=== PATIENT | female | born 1955 | race Caucasian/White ===

== ENCOUNTER 2017-03-31 12:17 | Emergency (ER) | payer BC, OTHER ==
[2017-03-31 13:46] LABS: BASO % 0.7 % (0.0-1.0); EOS # 0.3 10^3/uL (0.0-0.50); EOS % 5.6 % (0.0-3.0); HEMATOCRIT 44.4 % (36.0-47.0); HEMOGLOBIN 15.2 g/dl (12.0-16.0); IMMATURE GRANULOCYTE % 0.3 % (0-0); LYMPH # 1.8 10^3/uL (1.5-4.5); LYMPH % 29.1 % (24.0-44.0); MEAN CORPUSCULAR HEMOGLOBIN 29.4 pg (27.0-33.0); MEAN CORPUSCULAR HGB CONC 34.2 g/dl (32.0-36.5); MEAN CORPUSCULAR VOLUME 85.9 fl (80.0-96.0); MONO # 0.6 10^3/uL (0.0-0.8); NEUTROPHILS # 3.3 10^3/uL (1.8-7.7); NEUTROPHILS % 54.3 % (36.0-66.0); PLATELET COUNT, AUTOMATED 274 10^3/uL (150-450); RED BLOOD COUNT 5.17 10^6/uL (4.00-5.40); RED CELL DISTRIBUTION WIDTH 13.2 % (11.5-14.5); WHITE BLOOD COUNT 6.1 10^3/uL (4.0-10.0)
[2017-03-31] MEDS: ASPIRIN 81 MG CHEW TABLET PO ×2 (13:46)
[2017-03-31] MEDS: NITROGLYCERIN 0.4 MG SUBL TABLET SL ×6 (13:51→14:07)
[2017-03-31 13:59] LABS: INR 0.96; PROTHROMBIN TIME 12.9 SECONDS (12.4-14.5)
[2017-03-31 14:00] LABS: PARTIAL THROMBOPLASTIN TIME 34.1 SECONDS (26.8-37.9)
[2017-03-31 14:02] LABS: ALBUMIN 4.2 GM/DL (3.2-5.2); ALBUMIN/GLOBULIN RATIO 1.27 (1.00-1.93); ALKALINE PHOSPHATASE 248 U/L (45-117); ALT/SGPT 32 U/L (12-78); ANION GAP 6 MEQ/L (8-16); AST/SGOT 20 U/L (7-37); BILIRUBIN,DIRECT 0.1 MG/DL (0.0-0.2); BILIRUBIN,TOTAL 0.5 MG/DL (0.2-1.0); BLOOD UREA NITROGEN 12 MG/DL (7-18); CARBON DIOXIDE LEVEL 29 MEQ/L (21-32); CHLORIDE LEVEL 106 MEQ/L (98-107); CK-MB VALUE MASS 3.5 NG/ML (0.0-3.6); CPK CREATINE PHOSPHOKINASE 188 U/L (26-192); CREATININE FOR GFR 0.91 MG/DL (0.55-1.02); GLOMERULAR FILTRATION RATE > 60.0 (>45); GLUCOSE, FASTING 104 MG/DL (70-100); LIPASE 140 U/L (73-393); MB/CK RELATIVE INDEX 1.86 (< OR =4); POTASSIUM SERUM 3.7 MEQ/L (3.5-5.1); SODIUM LEVEL 141 MEQ/L (136-145); TOTAL PROTEIN 7.5 GM/DL (6.4-8.2); TROPONIN I < 0.02 NG/ML (< 0.10)
[2017-03-31] MEDS ORDERED: ISOVUE-370 76% 100ML VIAL (Q9967) As Ordered ×2 (14:49)
[2017-03-31 19:12] LABS: CK-MB VALUE MASS 2.8 NG/ML (0.0-3.6); CPK CREATINE PHOSPHOKINASE 138 U/L (26-192); MB/CK RELATIVE INDEX 2.02 (< OR =4); TROPONIN I < 0.02 NG/ML (< 0.10)
== END 2017-03-31 20:06 | disposition home or self-care (01) ==
LOC: M ED 12:17
DX: M54.2 Cervicalgia (principal)
CPT/HCPCS: Q9967

== ENCOUNTER 2017-11-20 09:31 | Emergency (ER) | payer BC, OTHER ==
[2017-11-20] MEDS: NS 1,000 ML IV (10:03)
[2017-11-20 10:04] LABS: BASO % 0.6 % (0.0-1.0); EOS # 0.7 10^3/uL (0.0-0.50); EOS % 9.4 % (0.0-3.0); HEMATOCRIT 42.9 % (36.0-47.0); HEMOGLOBIN 14.5 g/dl (12.0-15.5); IMMATURE GRANULOCYTE % 0.4 % (0-3.0); LYMPH # 2.5 10^3/uL (1.5-4.5); LYMPH % 35.9 % (24.0-44.0); MEAN CORPUSCULAR HEMOGLOBIN 29.7 pg (27.0-33.0); MEAN CORPUSCULAR HGB CONC 33.8 g/dl (32.0-36.5); MEAN CORPUSCULAR VOLUME 87.9 fl (80.0-96.0); MONO # 0.5 10^3/uL (0.0-0.8); MONO % 7.5 % (0.0-5.0); NEUTROPHILS # 3.2 10^3/uL (1.8-7.7); NEUTROPHILS % 46.2 % (36.0-66.0); PLATELET COUNT, AUTOMATED 258 10^3/uL (150-450); RED BLOOD COUNT 4.88 10^6/uL (4.00-5.40); RED CELL DISTRIBUTION WIDTH 13.4 % (11.5-14.5); WHITE BLOOD COUNT 6.9 10^3/uL (4.0-10.0)
[2017-11-20 10:26] LABS: INR 0.89; PROTHROMBIN TIME 12.1 SECONDS (12.1-14.4)
[2017-11-20 10:27] LABS: PARTIAL THROMBOPLASTIN TIME 32.9 SECONDS (25.4-37.6)
[2017-11-20 10:36] LABS: ALBUMIN 3.9 GM/DL (3.2-5.2); ALBUMIN/GLOBULIN RATIO 1.18 (1.00-1.93); ALKALINE PHOSPHATASE 240 U/L (45-117); ALT/SGPT 29 U/L (12-78); AMYLASE 38 U/L (25-115); ANION GAP 5 MEQ/L (8-16); AST/SGOT 20 U/L (7-37); BILIRUBIN,DIRECT 0.1 MG/DL (0.0-0.2); BILIRUBIN,TOTAL 0.4 MG/DL (0.2-1.0); BLOOD UREA NITROGEN 15 MG/DL (7-18); CALCIUM LEVEL 9.1 MG/DL (8.8-10.2); CARBON DIOXIDE LEVEL 27 MEQ/L (21-32); CHLORIDE LEVEL 108 MEQ/L (98-107); CREATININE FOR GFR 0.91 MG/DL (0.55-1.30); GLOMERULAR FILTRATION RATE > 60.0 (>45); GLUCOSE, FASTING 96 MG/DL (70-100); LIPASE 153 U/L (73-393); SODIUM LEVEL 140 MEQ/L (136-145); TOTAL PROTEIN 7.2 GM/DL (6.4-8.2)
[2017-11-20] MEDS ORDERED: ISOVUE-370 76% 100ML VIAL (Q9967) As Ordered (10:49)
[2017-11-20 10:57] LABS: KETONE, URINE AUTO RFX NEGATIVE (NEGATIVE); LEUKOCYTE ESTERASE UR AUTO RFX NEGATIVE (NEGATIVE); MUCUS, URINE RFX SMALL (NEGATIVE); NITRITE, URINE AUTO RFX NEGATIVE (NEGATIVE); RBC, URINE AUTO RFX 2 /HPF (0-3); SPECIFIC GRAVITY UR AUTO RFX 1.013 (1.002-1.035); SQUAM EPITHELIAL CELL UR AURFX 0 /HPF (0-6); WBC, URINE AUTO RFX 1 /HPF (0-3)
== END 2017-11-20 12:00 | disposition home or self-care (01) ==
LOC: M ED 09:31
DX: K52.9 Noninfective gastroenteritis and colitis, unspecified (principal); I10 Essential (primary) hypertension; K76.89 Other specified diseases of liver; Z82.49 Family history of ischemic heart disease and other diseases of the circulatory system; Z79.899 Other long term (current) drug therapy
CPT/HCPCS: Q9967

== ENCOUNTER → 2017-12-01 | Outpatient (REF) | payer BC, OTHER ==
[2017-12-01 18:50] LABS: PHOSPHORUS LEVEL 3.6 MG/DL (2.5-4.9)
[2017-12-01 18:50] LABS: TOTAL PROTEIN 6.9 GM/DL (6.4-8.2)
[2017-12-01 21:37] LABS: TOTAL PROTEIN,RANDOM URINE 7.8 MG/DL (0.0-12.0)
[2017-12-05 13:32] LABS: ALBUMIN 4.28 GM/DL (3.29-5.55); ALBUMIN % 62.1 % (55.8-66.1); ALPHA-1-GLOBULINS 0.28 GM/DL (0.17-0.41); ALPHA-2-GLOBULINS % 10.1 % (7.1-11.8); BETA-1-GLOBULINS 0.45 GM/DL (0.28-0.60); BETA-1-GLOBULINS % 6.5 % (4.7-7.2); BETA-2-GLOBULINS % 5.8 % (3.2-6.5); GAMMA GLOBULIN % 11.5 % (11.1-18.8); GAMMA GLOBULINS 0.79 GM/DL (0.65-1.58)
[2017-12-06 00:07] LABS: ANTI-SACCHAROMYCES CEREV. IgA <20.0 Units (0.0-24.9); ANTI-SACCHAROMYCES CEREV. IgG <20.0 Units (0.0-24.9)
== END ==
LOC: M LAB REF 16:38
DX: R93.5 Abnormal findings on diagnostic imaging of other abdominal regions, including retroperitoneum (principal); K52.9 Noninfective gastroenteritis and colitis, unspecified
CPT/HCPCS: 84100

== ENCOUNTER → 2017-12-02 | Outpatient (REF) | payer OTHER | LOC: M LAB REF 09:04 | DX: K52.9 Noninfective gastroenteritis and colitis, unspecified (principal) ==

== ENCOUNTER → 2017-12-09 | Outpatient (CLI) | payer BC, OTHER | LOC: M RAD 09:08 | DX: R93.5 Abnormal findings on diagnostic imaging of other abdominal regions, including retroperitoneum (principal); M89.9 Disorder of bone, unspecified | CPT/HCPCS: 78306 ==

== ENCOUNTER → 2018-01-19 | Outpatient (CLI) | payer BC, OTHER | LOC: M LAB 07:56 | DX: M88.89 Osteitis deformans of multiple sites (principal) | CPT/HCPCS: 70260 ==

== ENCOUNTER → 2018-01-30 | Outpatient (CLI) | payer BC, OTHER ==
[2018-02-02 00:30] LABS: CREATININE URINE 34.8 mg/dL (Not Estab.); N-TELO CREAT RATIO 116 (0-89); N-TELOPEPTIDE LEVEL 358 nmol BCE (Not Estab.)
== END ==
LOC: M LAB 08:11
DX: M88.89 Osteitis deformans of multiple sites (principal)
CPT/HCPCS: 82523

== ENCOUNTER 2018-02-01 07:32 | Day surgery (SDC) | payer BC, OTHER ==
[~2018-02-01 07:32] MED LIST: LIDOCAINE 2% INJ 100 MG/5 ML SDV (FOR ANES.) As Ordered; NS 1,000 ML IV; PROPOFOL 200 MG/20 ML VIAL As Ordered
== END 2018-02-01 09:34 | disposition home or self-care (01) ==
LOC: M OPP 07:32
DX: K64.0 First degree hemorrhoids (principal); K57.30 Diverticulosis of large intestine without perforation or abscess without bleeding; K44.9 Diaphragmatic hernia without obstruction or gangrene; R12 Heartburn; I10 Essential (primary) hypertension; E78.5 Hyperlipidemia, unspecified; Z79.899 Other long term (current) drug therapy
CPT/HCPCS: 43239

== ENCOUNTER 2018-03-24 10:23 | Emergency (ER) | payer OTHER, BC ==
[~2018-03-24] VITALS: Ht 167.6 cm; Wt 113.6 kg
[~2018-03-24 10:23] MED LIST changes: +ATOR1TAB19 PO; +CETI10CH PO; +CIPR-249 PO; +DOVO0.007 EX; +FLAG500T PO; -LIDOCAINE 2% INJ 100 MG/5 ML SDV (FOR ANES.) As Ordered; +LISI10TA4 PO; -NS 1,000 ML IV; -PROPOFOL 200 MG/20 ML VIAL As Ordered
[2018-03-24] MEDS ORDERED: IBUP1TAB7 PO (10:31)
[2018-03-24] MEDS ORDERED: ACET1TAB55 PO (10:31)
--- NOTE | 2018-03-24 11:25 | REP ---
LEFT TIBIA, FIBULA, FOUR VIEWS: HISTORY: Pain. There is a nondisplaced fracture of the distal fibula. There is no dislocation. The joint spaces are normal in appearance. Calcification is present superior to the patella. This represents tendon calcification. An osteophyte is present on the posterior calcaneus. IMPRESSION: Nondisplaced fracture of the distal fibula. Electronically Signed by Nuno Daniel MD 03/24/2018 11:28 A
[2018-03-24] MEDS ORDERED: ACET30TAB PO (11:35)
[2018-03-24 12:15] VITALS: BP 148/76
== END 2018-03-24 12:18 | disposition home or self-care (01) ==
LOC: M ED 10:23
DX: S82.832A Other fracture of upper and lower end of left fibula, initial encounter for closed fracture (principal); W01.0XXA Fall on same level from slipping, tripping and stumbling without subsequent striking against object, initial encounter; Y92.89 Other specified places as the place of occurrence of the external cause; Y99.0 Civilian activity done for income or pay; I10 Essential (primary) hypertension; M88.9 Osteitis deformans of unspecified bone; Z79.899 Other long term (current) drug therapy

== ENCOUNTER → 2018-04-19 | Outpatient (CLI) | payer BC, OTHER ==
[~2018-04-19] MED LIST changes: +ACET1TAB55 PO; +ACET30TAB PO; +IBUP1TAB7 PO
[2018-04-19 12:56] LABS: BLOOD UREA NITROGEN 20 MG/DL (7-18); CALCIUM LEVEL 9.7 MG/DL (8.8-10.2); CARBON DIOXIDE LEVEL 29 MEQ/L (21-32); CHLORIDE LEVEL 103 MEQ/L (98-107); CREATININE FOR GFR 0.92 MG/DL (0.55-1.30); GLOMERULAR FILTRATION RATE > 60.0 (>45); GLUCOSE, FASTING 94 MG/DL (70-100); POTASSIUM SERUM 4.5 MEQ/L (3.5-5.1); SODIUM LEVEL 140 MEQ/L (136-145)
== END ==
LOC: M LAB 11:48
PROVIDERS: ATTEND Internal Medicine Endocrinology, Diabetes & Metabolism
DX: M88.89 Osteitis deformans of multiple sites (principal)

== ENCOUNTER → 2018-09-13 | Outpatient (CLI) | payer BC, OTHER ==
[~2018-09-13] MED LIST changes: +ACET-716 PO; -ACET30TAB PO
[2018-09-16 00:06] LABS: ALK PHOSPHATASE BONE SPECIFIC 12.4 ug/L (.); CREATININE URINE 37.8 mg/dL (Not Estab.)
== END ==
LOC: M LAB 09:10
PROVIDERS: ATTEND Internal Medicine Endocrinology, Diabetes & Metabolism
DX: M88.89 Osteitis deformans of multiple sites (principal)

== ENCOUNTER → 2019-04-19 | Outpatient (CLI) | payer BC, OTHER ==
[2019-04-23 10:06] LABS: ALK PHOSPHATASE BONE SPECIFIC 11.6 ug/L (.); CREATININE URINE 58.4 mg/dL (Not Estab.)
== END ==
LOC: M LAB 09:56
PROVIDERS: ATTEND Internal Medicine Endocrinology, Diabetes & Metabolism
DX: M88.89 Osteitis deformans of multiple sites (principal)

== ENCOUNTER → 2019-05-18 | Outpatient (CLI) | payer BC, OTHER ==
[2019-05-18 11:42] LABS: ALBUMIN 3.8 GM/DL (3.2-5.2); ALT/SGPT 28 U/L (12-78); BILIRUBIN,TOTAL 0.4 MG/DL (0.2-1.0); BLOOD UREA NITROGEN 15 MG/DL (7-18); CALCIUM LEVEL 9.1 MG/DL (8.8-10.2); CARBON DIOXIDE LEVEL 27 MEQ/L (21-32); CHLORIDE LEVEL 110 MEQ/L (98-107); CHOLESTEROL LEVEL 176 MG/DL (<200); CHOLESTEROL RISK RATIO 5.333 (<5); CREATININE FOR GFR 0.83 MG/DL (0.55-1.30); GLOMERULAR FILTRATION RATE > 60.0 (>45); GLUCOSE, FASTING 91 MG/DL (70-100); HDL CHOLESTEROL 33 MG/DL (>40); LDL CHOLESTEROL 103 MG/DL (<100); NON-HDL-C 143 MG/DL; POTASSIUM SERUM 4.7 MEQ/L (3.5-5.1); SODIUM LEVEL 142 MEQ/L (136-145); TOTAL PROTEIN 6.7 GM/DL (6.4-8.2); TRIGLYCERIDES LEVEL 201 MG/DL (<150)
== END ==
LOC: M LAB 07:59
PROVIDERS: ATTEND Internal Medicine
DX: E78.5 Hyperlipidemia, unspecified (principal); I10 Essential (primary) hypertension

== ENCOUNTER 2019-10-29 08:33 | Emergency (ER) | payer BC, OTHER ==
[~2019-10-29] VITALS: Ht 167.6 cm; Wt 112.9 kg
[2019-10-29] MEDS ORDERED: ISOVUE-370 76% 100ML VIAL As Ordered ONE (09:54)
--- NOTE | 2019-10-29 10:38 | REPVR ---
PROCEDURE INFORMATION: Exam: CT Abdomen And Pelvis With Contrast Exam date and time: 10/29/2019 9:36 AM Age: 64 years old Clinical indication: Abdominal pain; Additional info: Rlq pain, R/O appendicitis TECHNIQUE: Imaging protocol: Computed tomography of the abdomen and pelvis with intravenous contrast. Radiation optimization: All CT scans at this facility use at least one of these dose optimization techniques: automated exposure control; mA and/or kV adjustment per patient size (includes targeted exams where dose is matched to clinical indication); or iterative reconstruction. Contrast material: ISOVIEW 370; Contrast volume: 100 ml; Contrast route: INTRAVENOUS (IV); COMPARISON: 1. CT ABD/PEL W/IV CONTRAST ONLY 11/20/2017 10:49 AM 2. [place] - [place] Bone Scan Whole Body 12/09/2017 9:07:47 AM (report not provided) FINDINGS: Lungs: A bleb measuring up to 3.6 cm is again present in the right lower lobe. Liver: The liver is again fatty in density. It again contains a cyst near the gallbladder fossa measuring up to 4.1 cm, as well as a few smaller cysts measuring up to 1.1 cm. Gallbladder and bile ducts: No gallstones are evident, but ultrasound would be more sensitive. Pancreas: Normal. No ductal dilation. Spleen: Normal. No splenomegaly. Adrenals: Normal. No mass. Kidneys and ureters: Normal. No hydronephrosis. Stomach and bowel: The unopacified small bowel is not significantly distended to suggest obstruction. The large bowel is grossly unremarkable in appearance. Appendix: The appendix appears normal. Intraperitoneal space: No free air or significant free fluid. Vasculature: The abdominal aorta is nonaneurysmal. Atherosclerotic vascular calcifications are again present. Lymph nodes: Unremarkable. No enlarged lymph nodes. Bladder: Grossly unremarkable. Reproductive: There has again been hysterectomy. No gross adnexal abnormality is apparent, but ultrasound would be more appropriate in this regard. Bones/joints: There are again sclerotic changes in the L2 and L3 vertebral bodies, mildly progressive, with progressive involvement of the posterior elements. Sclerotic lesion again involves the left sacrum adjacent to the sacroiliac joints. Sclerotic changes in the bilateral iliac bones along the sacroiliac joints also appear mildly progressive. Soft tissues: A very small fat containing umbilical hernia is again present. IMPRESSION: 1. No evidence for appendicitis or other acute intra-abdominal or pelvic abnormality. 2. Mildly progressive appearance of sclerotic changes of the spine and pelvis as compared with 11/20/17. Correlate with results of subsequently performed bone scan, and consider follow-up bone scan and other clinical evaluation, as metastatic disease is again a consideration. 3. Stable nonurgent findings as described. Electronically signed by: Aristeo Estrada On 10/29/2019 10:38:42 AM
[2019-10-29 10:54] LABS: BASO % 0.4 % (0.0-1.0); EOS # 0.3 10^3/uL (0.0-0.5); EOS % 5.5 % (0.0-3.0); HEMATOCRIT 41.6 % (36.0-47.0); HEMOGLOBIN 14.1 g/dl (12.0-15.5); LYMPH # 1.7 10^3/uL (1.5-5.0); LYMPH % 32.4 % (24.0-44.0); MEAN CORPUSCULAR HEMOGLOBIN 30.7 pg (27.0-33.0); MEAN CORPUSCULAR HGB CONC 33.9 g/dl (32.0-36.5); MEAN CORPUSCULAR VOLUME 90.6 fl (80.0-96.0); MONO # 0.4 10^3/uL (0.0-0.8); MONO % 8.2 % (0.0-5.0); NEUTROPHILS # 2.8 10^3/uL (1.5-8.5); NEUTROPHILS % 52.9 % (36.0-66.0); PLATELET COUNT, AUTOMATED 256 10^3/uL (150-450); RED BLOOD COUNT 4.59 10^6/uL (4.00-5.40); WHITE BLOOD COUNT 5.2 10^3/uL (4.0-10.0)
[2019-10-29 11:38] LABS: ALBUMIN 3.7 GM/DL (3.2-5.2); BILIRUBIN,DIRECT 0.1 MG/DL (0.0-0.2); BILIRUBIN,TOTAL 0.4 MG/DL (0.2-1.0); TOTAL PROTEIN 6.6 GM/DL (6.4-8.2)
[2019-10-29 11:52] VITALS: BP 144/77
== END 2019-10-29 12:26 | disposition home or self-care (01) ==
LOC: M ED 08:33
DX: R10.31 Right lower quadrant pain (principal); I10 Essential (primary) hypertension; K21.9 Gastro-esophageal reflux disease without esophagitis; E78.5 Hyperlipidemia, unspecified; M88.9 Osteitis deformans of unspecified bone; Z79.899 Other long term (current) drug therapy
CPT/HCPCS: 36415; 74177; 80047; 80076; 81001; 83690; 85025; 99284; Q9967

== ENCOUNTER → 2019-11-05 | Outpatient (CLI) | payer BC, OTHER ==
[2019-11-08 16:08] LABS: ALK PHOSPHATASE BONE SPECIFIC 13.6 ug/L (.)
== END ==
LOC: M LAB 07:51
PROVIDERS: ATTEND Nurse Practitioner Family
DX: M88.89 Osteitis deformans of multiple sites (principal)

== ENCOUNTER → 2019-12-25 | Outpatient (CLI) | payer BC, OTHER ==
[2019-12-25 09:45] LABS: BLOOD UREA NITROGEN 12 MG/DL (7-18); CALCIUM LEVEL 9.1 MG/DL (8.8-10.2); CARBON DIOXIDE LEVEL 28 MEQ/L (21-32); CHLORIDE LEVEL 107 MEQ/L (98-107); CREATININE FOR GFR 0.96 MG/DL (0.55-1.30); GLOMERULAR FILTRATION RATE > 60.0 (>45); GLUCOSE, FASTING 94 MG/DL (70-100); POTASSIUM SERUM 4.6 MEQ/L (3.5-5.1); SODIUM LEVEL 141 MEQ/L (136-145)
[2019-12-25 09:51] LABS: TOTAL 25(OH) VITAMIN D 34.8 NG/ML (30.0-100.0)
== END ==
LOC: M LAB 08:28
PROVIDERS: ATTEND Internal Medicine Endocrinology, Diabetes & Metabolism
DX: M81.0 Age-related osteoporosis without current pathological fracture (principal)

== ENCOUNTER → 2020-04-14 | Outpatient (CLI) | payer BC, OTHER ==
[~2020-04-14] MED LIST changes: +LISI10TA22 PO; -LISI10TA4 PO
== END ==
LOC: M LAB 12:32
PROVIDERS: ATTEND Internal Medicine Endocrinology, Diabetes & Metabolism
DX: M88.89 Osteitis deformans of multiple sites (principal)

== ENCOUNTER → 2021-02-09 | Outpatient (CLI) | payer BC, OTHER | LOC: M LAB 08:21 | PROVIDERS: ATTEND Internal Medicine Endocrinology, Diabetes & Metabolism | DX: M88.89 Osteitis deformans of multiple sites (principal) ==

== ENCOUNTER → 2023-11-30 | Outpatient (CLI) | payer MEDICARE, OTHER ==
[2023-12-06 23:08] LABS: N-TELOPEPTIDE LEVEL 29 (see note); NTXURINE2 98 mg/dL (20-275)
== END ==
LOC: M LAB 07:25
PROVIDERS: ATTEND Internal Medicine Endocrinology, Diabetes & Metabolism
DX: M88.89 Osteitis deformans of multiple sites (principal)

== ENCOUNTER → 2024-06-11 | Outpatient (CLI) | payer MEDICARE | LOC: M PLAIMG 11:35 | PROVIDERS: ATTEND Physician Assistant Surgical | DX: M25.462 Effusion, left knee (principal) ==

== ENCOUNTER → 2024-06-20 | Outpatient (CLI) | payer MEDICARE | LOC: M LAB 08:31 | PROVIDERS: ATTEND Nurse Practitioner Family | DX: M88.89 Osteitis deformans of multiple sites (principal) ==